=== PATIENT | male | born 1985 | race Caucasian/White ===

== ENCOUNTER 2023-01-14 19:48 | Emergency (ER) | payer OTHER ==
[~2023-01-14] VITALS: Ht 182.9 cm; Wt 84.1 kg
[2023-01-14 19:55] VITALS: BP 128/77
[2023-01-14] MEDS ORDERED: triamcinolone acetonide 40mg/ml inj IM ONE (20:15)
[2023-01-14] MEDS ORDERED: PRED20TA PO (20:21)
[2023-01-14] MEDS ORDERED: TRIA15CR61 TOP (20:21)
== END 2023-01-14 20:48 | disposition home or self-care (01) ==
LOC: ER 19:49
DX: L23.7 Allergic contact dermatitis due to plants, except food (principal); Z79.899 Other long term (current) drug therapy; Z79.1 Long term (current) use of non-steroidal anti-inflammatories (NSAID)
CPT/HCPCS: 96372; 99283; J3301